=== PATIENT | female | born 1960 | race African-American/Black ===

== ENCOUNTER 2018-02-26 14:40 | Emergency (ER) | payer MEDICARE ==
[~2018-02-26] VITALS: Ht 160 cm; Wt 86.2 kg
[2018-02-26 16:09] LABS: BILIRUBIN,URINE SMALL (NEG); CLARITY,URINE CLEAR; COLOR,URINE YELLOW; NITRITE,URINE NEGATIVE (NEG); PH,URINE 5.5; PROTEIN,URINE NEGATIVE (NEG-TRACE); UROBILINOGEN,URINE 0.2 mg/dL (0.2 mg/dL)
[2018-02-26 16:10] LABS: BASO # 0.1 x10^3/uL (0.0-0.2); BASO % 1 % (0-3); EOS # 0.9 x10^3/uL (0.0-0.7); EOS % 6 % (0-3); HEMATOCRIT 41.8 % (36.0-47.0); HEMOGLOBIN 14.2 g/dL (12.0-15.5); LYMPH # 3.4 x10^3/uL (1.0-4.8); LYMPH % 24 % (24-48); MEAN CORPUSCULAR HEMOGLOBIN 30 pg (25-35); MEAN CORPUSCULAR HGB CONC 34 g/dL (31-37); MEAN CORPUSCULAR VOLUME 89 fL (79-100); MONO % 7 % (0-9); NEUT # 8.7 x10^3uL (1.8-7.7); NEUT % 62 % (31-73); PLATELET COUNT 297 x10^3/uL (140-400); RED BLOOD COUNT 4.69 x10^6/uL (3.50-5.40); RED CELL DISTRIBUTION WIDTH 14.1 % (11.5-14.5); WHITE BLOOD COUNT 14.1 x10^3/uL (4.0-11.0)
[2018-02-26] MEDS: IV NORMAL SALINE 1000ML BAG 1,000 ML IV ONE ×2 (16:17→19:00)
[2018-02-26] MEDS: KETOROLAC 15 MG/ML VIAL. IV ONE (16:19)
[2018-02-26 16:23] LABS: HYALINE CASTS, URINE MANY /HPF; SQUAMOUS EPITHELIAL CELL,UR MOD /LPF
[2018-02-26 16:27] LABS: BACTERIA,URINE 0 /HPF (0-FEW)
[2018-02-26] MEDS ORDERED: CONTRAST GIVEN. MC PRN (16:30)
[2018-02-26] MEDS: IOHEXOL 240 MG/ML 50ML VIAL. PO ONE (16:30)
[2018-02-26 16:54] LABS: CALCIUM 9.7 mg/dL (8.5-10.1); CREATININE 1.1 mg/dL (0.6-1.0); GFR 61.5; POTASSIUM 3.8 mmol/L (3.5-5.1)
[2018-02-26 17:00] LABS: ALBUMIN 3.1 g/dL (3.4-5.0); ALBUMIN/GLOBULIN RATIO 0.7 (1.0-1.7); TOTAL BILIRUBIN 0.6 mg/dL (0.2-1.0); TOTAL PROTEIN 7.7 g/dL (6.4-8.2)
[2018-02-26] MEDS: IOHEXOL 300 MG/ML 100ML VIAL. IV ONE (17:22)
--- NOTE | 2018-02-26 17:49 | RAD ---
CT ABD PELV W/ORAL IV CONTRAST Indication: ABD PAIN X 3 DAYS SX VEDA LAST BM X 4 DAYS INJ 75ML OMNI 300 NO PREV Exposure: One or more of the following individualized dose reduction techniques were utilized for this examination: 1. Automated exposure control 2. Adjustment of the mA and/or kV according to patient size 3. Use of iterative reconstruction technique. Comparison: None are available. Contrast: Intravenous contrast was given. Oral contrast was given. FINDINGS: Lower thorax: Mild linear atelectasis or fibrosis. Liver: Unremarkable Spleen: Unremarkable Pancreas: Unremarkable Adrenals: No evidence of mass. Kidneys: No obvious mass. Urinary tracts: No hydronephrosis. Gallbladder: Surgically absent Lymph nodes: No significant enlargement Vessels: Mild calcification, no aortic aneurysm. GI tract: Small hiatal hernia. No bowel obstruction. No evidence of acute colitis. Appendix appears normal. Small colonic diverticula are noted. Reproductive organs:No evidence of mass. Urinary bladder: Unremarkable. Peritoneum: No evidence of pneumoperitoneum. No free fluid. Abdominal wall:Unremarkable Spine: Mildly degenerative. Bones: No destructive process identified. External Soft Tissue: No acute findings. IMPRESSION: 1. Colonic diverticulosis, no evidence of acute colitis. Mild stool in the colon. 2. Mild atelectasis or fibrosis in lung bases. Electronically signed by: Bimal Chacon MD (02/26/2018 5:44 PM) [facility] [id number]
[2018-02-26] MEDS ORDERED: CIPR500T94 PO (18:39)
[2018-02-26] MEDS ORDERED: METR500T PO (18:39)
--- NOTE | 2018-02-26 18:40 | PHYS DOC ---
Past Medical History Past Medical History: CAD, Diabetes-Type II, High Cholesterol, Hypertension, Hypothyroid Past Surgical History: Coronary Bypass Surgery Alcohol Use: None Drug Use: None Adult General Chief Complaint Chief Complaint: ABDOMINAL PAIN HPI HPI Patient is a 57 year old female who presents with abdominal pain, lower back pain and constipation. The patient states that she has not had a good bowel movement in 2-3 days. She states that she has not tried [id number] laxatives. She denies nausea or vomiting. Review of Systems Review of Systems Constitutional: Denies fever or chills [] Eyes: Denies change in visual acuity, redness, or eye pain [] HENT: Denies nasal congestion or sore throat [] Respiratory: Denies cough or shortness of breath [] Cardiovascular: No additional information not addressed in HPI [] GI: See history of present illness : Denies dysuria or hematuria [] Musculoskeletal: Denies back pain or joint pain [] Integument: Denies rash or skin lesions [] Neurologic: Denies headache, focal weakness or sensory changes [] Endocrine: Denies polyuria or polydipsia [] All other systems were reviewed and found to be within normal limits, except as documented in this note. Current Medications Current Medications Current Medications Medications (Trade) Dose Ordered Sig/Maddy Start Time Stop Time Status Last Admin Dose Admin Ciprofloxacin/ Dextrose 200 ml @ 200 mls/hr 1X ONCE 02/26/18 18:00 02/26/18 18:59 DC 02/26/18 19:00 200 MLS/HR Info (CONTRAST GIVEN -- Rx MONITORING) 1 each PRN DAILY PRN 02/26/18 16:30 02/26/18 20:49 DC Iohexol (Omnipaque 240 Mg/ml) 30 ml 1X ONCE 02/26/18 16:30 02/26/18 16:31 DC 02/26/18 16:30 30 ML Iohexol (Omnipaque 300 Mg/ml) 75 ml 1X ONCE 02/26/18 16:30 02/26/18 16:31 DC 02/26/18 17:22 75 ML Ketorolac Tromethamine (Toradol 15mg Vial) 15 mg 1X ONCE 02/26/18 16:15 02/26/18 16:16 DC 02/26/18 16:19 15 MG Metronidazole 100 ml @ 100 mls/hr 1X ONCE 02/26/18 18:00 02/26/18 18:59 DC 02/26/18 19:04 100 MLS/HR Sodium Chloride 1,000 ml @ 1,000 mls/hr 1X ONCE 02/26/18 18:00 02/26/18 18:59 DC 02/26/18 19:00 1,000 MLS/HR Allergies Allergies Allergies Coded Allergies Type Severity Reaction Last Updated Verified No Known Drug Allergies 02/26/18 No Physical Exam Physical Exam Constitutional: Well developed, well nourished, no acute distress, non-toxic appearance. [] HENT: Normocephalic, atraumatic, bilateral external ears normal, oropharynx moist, no oral exudates, nose normal. [] Eyes: PERRLA, EOMI, conjunctiva normal, no discharge. [] Neck: Normal range of motion, no tenderness, supple, no stridor. [] Cardiovascular:Heart rate regular rhythm, no murmur [] Lungs & Thorax: Bilateral breath sounds clear to auscultation [] Abdomen: Bowel sounds normal, soft, no tenderness, no masses, no pulsatile masses. [] Skin: Warm, dry, no erythema, no rash. [] Back: No tenderness, no CVA tenderness. [] Extremities: No tenderness, no cyanosis, no clubbing, ROM intact, no edema. [] Neurologic: Alert and oriented X 3, normal motor function, normal sensory function, no focal deficits noted. [] Psychologic: Affect normal, judgement normal, mood normal. [] Current Patient Data Vital Signs Vital Signs Date Time Temp Pulse Resp B/P (MAP) Pulse Ox O2 Delivery O2 Flow Rate FiO2 02/26/18 20:15 74 15 114/62 (79) 97 Room Air 02/26/18 15:14 98.6 98.6 Lab Values Laboratory Tests Test 02/26/18 15:34 White Blood Count 14.1 x10^3/uL (4.0-11.0) H Red Blood Count 4.69 x10^6/uL (3.50-5.40) Hemoglobin 14.2 g/dL (12.0-15.5) Hematocrit 41.8 % (36.0-47.0) Mean Corpuscular Volume 89 fL (79-100) Mean Corpuscular Hemoglobin 30 pg (25-35) Mean Corpuscular Hemoglobin Concent 34 g/dL (31-37) Red Cell Distribution Width 14.1 % (11.5-14.5) Platelet Count 297 x10^3/uL (140-400) Neutrophils (%) (Auto) 62 % (31-73) Lymphocytes (%) (Auto) 24 % (24-48) Monocytes (%) (Auto) 7 % (0-9) Eosinophils (%) (Auto) 6 % (0-3) H Basophils (%) (Auto) 1 % (0-3) Neutrophils # (Auto) 8.7 x10^3uL (1.8-7.7) H Lymphocytes # (Auto) 3.4 x10^3/uL (1.0-4.8) Monocytes # (Auto) 1.0 x10^3/uL (0.0-1.1) Eosinophils # (Auto) 0.9 x10^3/uL (0.0-0.7) H Basophils # (Auto) 0.1 x10^3/uL (0.0-0.2) Urine Collection Type Unknown Urine Color Yellow Urine Clarity Clear Urine pH 5.5 Urine Specific [place] 1.025 Urine Protein Negative mg/dL (NEG-TRACE) Urine Glucose (UA) Negative mg/dL (NEG) Urine Ketones (Stick) Negative mg/dL (NEG) Urine Blood Negative (NEG) Urine Nitrite Negative (NEG) Urine Bilirubin Small (NEG) Urine Urobilinogen Dipstick 0.2 mg/dL (0.2 mg/dL) Urine Leukocyte Esterase Moderate (NEG) Urine RBC 3-5 /HPF (0-2) Urine WBC 5-10 /HPF (0-4) Urine Squamous Epithelial Cells Mod /LPF Urine Bacteria 0 /HPF (0-FEW) Urine Hyaline Casts Many /HPF Urine Mucus Marked /LPF Sodium Level 140 mmol/L (136-145) Potassium Level 3.8 mmol/L (3.5-5.1) Chloride Level 103 mmol/L (98-107) Carbon Dioxide Level 28 mmol/L (21-32) Anion Gap 9 (6-14) Blood Urea Nitrogen 24 mg/dL (7-20) H Creatinine 1.1 mg/dL (0.6-1.0) H Estimated GFR (Cockcroft-Gault) 61.5 BUN/Creatinine Ratio 22 (6-20) H Glucose Level 98 mg/dL (70-99) Calcium Level 9.7 mg/dL (8.5-10.1) Total Bilirubin 0.6 mg/dL (0.2-1.0) Aspartate Amino Transferase (AST) 20 U/L (15-37) Alanine Aminotransferase (ALT) 25 U/L (14-59) Alkaline Phosphatase 143 U/L (46-116) H Total Protein 7.7 g/dL (6.4-8.2) Albumin 3.1 g/dL (3.4-5.0) L Albumin/Globulin Ratio 0.7 (1.0-1.7) L Laboratory Tests 02/26/18 15:34 Laboratory Tests 02/26/18 15:34 EKG EKG [] Radiology/Procedures Radiology/Procedures []PATIENT: OWEN VILLALBA RACCOUNT: [id number]#: [id number] : 1960 LOCATION: ER AGE: 57 SEX: F EXAM STATUS: REG ER ORD. PHYSICIAN: KARL TRUJILLO APRN REASON: abdominal pain x 3 days PROCEDURE: CT ABD PELV W/ORAL&IV CONTRAST CT ABD PELV W/ORAL IV CONTRAST Indication: ABD PAIN X 3 DAYS SX VEDA LAST BM X 4 DAYS INJ 75ML OMNI 300 NO PREV Exposure: One or more of the following individualized dose reduction techniques were utilized for this examination: 1. Automated exposure control 2. Adjustment of the mA and/or kV according to patient size 3. Use of iterative reconstruction technique. Comparison: None are available. Contrast: Intravenous contrast was given. Oral contrast was given. FINDINGS: Lower thorax: Mild linear atelectasis or fibrosis. Liver: Unremarkable Spleen: Unremarkable Pancreas: Unremarkable Adrenals: No evidence of mass. Kidneys: No obvious mass. Urinary tracts: No hydronephrosis. Gallbladder: Surgically absent Lymph nodes: No significant enlargement Vessels: Mild calcification, no aortic aneurysm. GI tract: Small hiatal hernia. No bowel obstruction. No evidence of acute colitis. Appendix appears normal. Small colonic diverticula are noted. Reproductive organs:No evidence of mass. Urinary bladder: Unremarkable. Peritoneum: No evidence of pneumoperitoneum. No free fluid. Abdominal wall:Unremarkable Spine: Mildly degenerative. Bones: No destructive process identified. External Soft Tissue: No acute findings. IMPRESSION: 1. Colonic diverticulosis, no evidence of acute colitis. Mild stool in the colon. 2. Mild atelectasis or fibrosis in lung bases. Electronically signed by: Bimal Chacon MD (02/26/2018 5:44 PM) [facility] DICTATED and SIGNED BY: BIMAL CHACON MD DATE: 02/26/18 1739 Course & Med Decision Making Course & Med Decision Making Pertinent Labs and Imaging studies reviewed. (See chart for details) [] Dragon Disclaimer Dragon Disclaimer This electronic medical record was generated, in whole or in part, using a voice recognition dictation system. Departure Departure Impression: Primary Impression: Urinary tract infection Additional Impressions: Pyelonephritis Diverticulosis Disposition: 01 HOME, SELF-CARE Condition: STABLE Referrals: UNKNOWN PCP NAME (PCP) Patient Instructions: Diverticulosis, Pyelonephritis, Adult Additional Instructions: Take the medications as directed. Keep your follow-up appointment with your primary care provider for a urine recheck. If worsening return to the emergency department. Scripts Metronidazole (FLAGYL) 500 Mg Tablet 1 TAB PO BID for Diverticulosis, #14 TAB Prov: KARL TRUJILLO APRN 02/26/18 Ciprofloxacin Hcl (CIPRO) 500 Mg Tablet 1 TAB PO BID for pylonephritis, #14 TAB Prov: KARL TRUJILLO APRN 02/26/18 Problem Qualifiers KARL TRUJILLO APRN Feb 26, 2018 18:40
[2018-02-26] MEDS: CIPROFLOXACIN 400MG PREMIX 200 ML IV ONE (19:00)
[2018-02-26 20:15] VITALS: BP 114/62
== END 2018-02-26 20:48 | disposition home or self-care (01) ==
LOC: ER 14:40
DX: N12 Tubulo-interstitial nephritis, not specified as acute or chronic (principal); K57.30 Diverticulosis of large intestine without perforation or abscess without bleeding; N39.0 Urinary tract infection, site not specified; K44.9 Diaphragmatic hernia without obstruction or gangrene; I25.10 Atherosclerotic heart disease of native coronary artery without angina pectoris; E11.9 Type 2 diabetes mellitus without complications; E78.00 Pure hypercholesterolemia, unspecified; I10 Essential (primary) hypertension; E03.9 Hypothyroidism, unspecified; Z95.1 Presence of aortocoronary bypass graft
CPT/HCPCS: 36415; 74177; 80053; 81001; 85025; 87086; 96365; 96368; 96375; 99285; J0744; J1885; J3490; J7030; Q9966; Q9967